=== PATIENT | female | born 1990 | race Caucasian/White ===

== ENCOUNTER 2018-04-13 04:34 | Inpatient (IN) | payer OTHER ==
--- OUTSIDE RECORDS SUMMARY | 2018-04-13 04:36 | XMS REPORT ---
:1990 Author Organization eClinicalWorks Care Team Providers Name Role Phone All Mayer Provider Role Unavailable Allergies No Known Allergies Problems Problem Type Condition Code Onset Dates Condition Status Problem Scoliosis (and kyphoscoliosis), M41.20 Active idiopathic Problem Cluster headache G44.009 Active Problem ADHD (attention deficit F90.2 Active hyperactivity disorder), combined type Assessment care, subsequent Z34.82 Active in second trimester Problem care, subsequent Z34.82 Active in second trimester Problem Medication exposure during first O09.891 Active trimester of Problem Nausea/vomiting in O21.9 Active Problem Asthma J45.909 Active Problem Allergic rhinitis, seasonal J30.2 Active Problem Atopic dermatitis L20.9 Active Problem Pap smear abnormality of R87.89 Active cervix/human papillomavirus (HPV) positive Medications Medication Code System Code Instructions Start End Date Status Dosage Date Vyvanse [facility] 31941132255 40 MG Orally Active 1 capsule Once a day in the morning Reglan ND 51191233123 10 MG Orally September 10, Active 1 every 8 hours or 2018 as needed Diclegis ND 71383544998 10 mg by mouth September 10, Active 2 every 6 hours 2018 Results No Known Results Summary Purpose eClinicalWorks Submission
--- OUTSIDE RECORDS SUMMARY | 2018-04-13 04:36 | XMS REPORT ---
:1990 Author Organization eClinicalWorks Care Team Providers Name Role Phone All Mayer Provider Role Unavailable Allergies No Known Allergies Problems Problem Type Condition Code Onset Dates Condition Status Problem Allergic rhinitis, seasonal J30.2 Active Problem Atopic dermatitis L20.9 Active Problem Asthma J45.909 Active Problem Oligohydramnios, antepartum, O41.00X0 Active single or unspecified fetus Problem Uterine size-date discrepancy in O26.843 Active third trimester Problem Poor growth affecting O36.5930 Active management of mother in third trimester, single or unspecified fetus Problem care, subsequent Z34.82 Active in second trimester Problem Medication exposure during first O09.891 Active trimester of Problem Encounter for supervision of other Z34.83 Active normal in third trimester Problem Nausea/vomiting in O21.9 Active Assessment Poor growth affecting O36.5930 Active management of mother in third trimester, single or unspecified fetus Assessment Uterine size-date discrepancy in O26.843 Active third trimester Assessment Oligohydramnios, antepartum, O41.00X0 Active single or unspecified fetus Problem Pap smear abnormality of R87.89 Active cervix/human papillomavirus (HPV) positive Problem Scoliosis (and kyphoscoliosis), M41.20 Active idiopathic Assessment Encounter for supervision of other Z34.83 Active normal in third trimester Problem ADHD (attention deficit F90.2 Active hyperactivity disorder), combined type Problem Cluster headache G44.009 Active Medications Medication Code System Code Instructions Start End Date Status Dosage Date Diclegis [facility] 12866476338 10 mg by mouth September 10, Active 2 every [address] [facility] 68570220230 40 MG Orally Active 1 capsule Once a day in the morning Reglan [facility] 22372352852 10 MG Orally September 10, Active 1 every 8 hours or 2018 as needed Results No Known Results Immunizations Vaccine Administration Date TDAP > 7 Years-Adacel Mar 25, 2018 Summary Purpose eClinicalWorks Submission
--- OUTSIDE RECORDS SUMMARY | 2018-04-13 04:36 | XMS REPORT ---
:1990 Author Organization eClinicalWorks Care Team Providers Name Role Phone Afia Narayan Provider Role Unavailable Allergies No Known Allergies Problems Problem Type Condition Code Onset Dates Condition Status Assessment care, subsequent Z34.81 Active in first trimester Problem Medication exposure during first O09.891 Active trimester of Assessment Medication exposure during first O09.891 Active trimester of Medications Medication Code System Code Instructions Start End Date Status Dosage Date Reglan [facility] 14217108808 10 MG Orally September 10, Active 1 every 8 hours or 2018 as needed Diclegis ND 88938002650 10 mg by mouth September 10, Active 2 every 6 hours 2018 Vyvanse [facility] 62147891616 40 MG Orally Active 1 capsule Once a day in the morning Results No Known Results Summary Purpose eClinicalWorks Submission
--- OUTSIDE RECORDS SUMMARY | 2018-04-13 04:36 | XMS REPORT ---
[...] Start End Date Status Dosage Date Reglan [facility] 46101394275 10 MG Orally September 10, Active 1 every 8 hours or 2018 as needed Diclegis ND 19753843822 10 mg by mouth September 10, Active 2 every 6 hours 2017 Vyvanse [facility] 29675930343 40 MG Orally Active 1 capsule Once a day in the morning Results No Known Results Summary Purpose eClinicalWorks Submission
--- OUTSIDE RECORDS SUMMARY | 2018-04-13 04:36 | XMS REPORT ---
:1990 Author Organization eClinicalWorks Care Team Providers Name Role Phone Afia Narayan Provider Role Unavailable Allergies No Known Allergies Problems Problem Type Condition Code Onset Dates Condition Status Problem Scoliosis (and kyphoscoliosis), M41.20 Active idiopathic Problem Cluster headache G44.009 Active Problem ADHD (attention deficit F90.2 Active hyperactivity disorder), combined type Assessment Nausea/vomiting in O21.9 Active Assessment care, subsequent Z34.82 Active in second [...] Start End Date Status Dosage Date Vyvanse [facility] 35579375820 40 MG Orally Active 1 capsule Once a day in the morning Merry [facility] 56382648940 10 mg by mouth September 10, Active 2 every 6 hours 2018 Reglan ND 48639376187 10 MG Orally September 10, Active 1 every 8 hours or 2018 as needed Results No Known Results Summary Purpose eClinicalWorks Submission
--- OUTSIDE RECORDS SUMMARY | 2018-04-13 04:37 | XMS REPORT ---
[...] Start End Date Status Dosage Date Reglan [facility] 59859904855 10 MG Orally September 10, Active 1 every 8 hours or 2018 as needed Vyvanse [facility] 71127836348 40 MG Orally Active 1 capsule Once a day in the morning Diclegis [facility] 60470631608 10 mg by mouth September 10, Active 2 every 6 hours 2018 Results No Known Results Summary Purpose eClinicalWorks Submission
--- OUTSIDE RECORDS SUMMARY | 2018-04-13 04:37 | XMS REPORT ---
:1990 Author Organization eClinicalWorks Care Team Providers Name Role Phone All Mayer Provider Role Unavailable Allergies No Known Allergies Problems Problem Type Condition Code Onset Dates Condition Status Problem Allergic rhinitis, seasonal J30.2 Active Problem Atopic dermatitis L20.9 Active Problem Asthma J45.909 Active Problem Pap smear abnormality of R87.89 Active cervix/human papillomavirus (HPV) positive Problem Scoliosis (and kyphoscoliosis), M41.20 Active idiopathic Problem ADHD (attention deficit F90.2 Active hyperactivity disorder), combined type Problem Cluster headache G44.009 Active Problem Oligohydramnios, antepartum, O41.00X0 Active single [...] third trimester Problem Nausea/vomiting in O21.9 Active Medications No Known Medications Results No Known Results Summary Purpose eClinicalWorks Submission
[2018-04-13] MEDS ORDERED: METHYLERGONOVINE 0.2MG/ML AMP IM PRN (05:03)
[2018-04-13] MEDS ORDERED: Ringers Lactate 1,000 ML IV PRN (05:03)
[2018-04-13] MEDS ORDERED: BUTORPHANOL 1 MG/ML INJ IV PRN (05:03)
[2018-04-13] MEDS ORDERED: PROMETHAZINE 25 MG/ML VIAL IM PRN (05:03)
[2018-04-13] MEDS ORDERED: CARBOPROST TROME 250 MCG/ML IM PRN (05:03)
[2018-04-13] MEDS ORDERED: FENTANYL CITR 100 MCG/2 ML IV ONE (05:05)
[2018-04-13] MEDS ORDERED: ROPIVACAINE HCL 100 ML IV PRN (05:05)
[2018-04-13] MEDS ORDERED: ROPIVACAINE HCL 0.2% 20ML AMP IV ONE (05:06)
[2018-04-13] MEDS ORDERED: MEPERIDINE HCL 25 MG/0.5 ML IV ONE (05:34)
[2018-04-13 05:40] LABS: RPR Titer ND
[2018-04-13] MEDS ORDERED: LIDOCAINE 1% MPF 30 ML VIAL ONE (05:43)
[2018-04-13] MEDS ORDERED: Ringers Lactate 1,000 ML IV SCH (06:00)
[2018-04-13] MEDS ORDERED: OXYTOCIN/LR 20 UNIT/1,000 ML BAG IV SCH (06:00)
[2018-04-13 06:04] LABS: Absolute Lymphocytes (CBC) 1.7 K/uL (0.7-4.9); Absolute Monocytes 0.8 K/uL (0.1-1.3); Absolute Neutrophil 16.7 K/uL (1.8-8.0); Basophils % 0.2 % (0-1.3); Eosinophils % 0.3 % (0-4.4); Hematocrit 38.6 % (36.0-45.0); MPV 8.2 fL (7.6-11.3); Monocytes % 3.9 % (3.3-12.3); RBC Red Blood Cell Count 4.48 M/uL (3.86-4.86)
[2018-04-13 06:38] LABS: Blood Morphology Comment NOT SEEN (NOT SEEN); Platelet Estimate ADEQ; Urine White Blood Cell Casts OK
[2018-04-13 07:20] VITALS: BMI 33.2
[2018-04-13] MEDS ORDERED: DOCUSATE NA/SENNA CONC 1 TAB PO PRN (08:15)
[2018-04-13] MEDS ORDERED: METHYLERGONOVINE 0.2 MG TAB PO PRN (08:15)
[2018-04-13] MEDS ORDERED: ONDANSETRON 4 MG (ODT) TAB PO PRN (08:15)
[2018-04-13] MEDS ORDERED: ACETAMINOPHEN 500 MG TAB PO PRN (08:15)
[2018-04-13] MEDS ORDERED: BISACODYL 10 MG RECTAL SUPP RECT PRN (08:15)
[2018-04-13] MEDS ORDERED: IBUPROFEN 200 MG TAB PO PRN (08:15)
--- NOTE | 2018-04-13 16:35 | P.OBGYNHP ---
Certification for Inpatient Patient admitted to: Inpatient With expected LOS: <2 Midnights Patient will require the following post-hospital care: None Practitioner: I am a practitioner with admitting privileges, knowledge of patient current condition, hospital course, and medical plan of care. Services: Services provided to patient in accordance with Admission requirements found in Title 42 Section 412.3 of the Code of Federal Regulations Patient History Date of Service: 04/13/18 Reason for admission: LABOR History of Present Illness: Patient is a 27-year-old 2 para 1011 who presented to Labor and delivery at the weeks and 5 days gestation in active labor with spontaneous rupture of membranes. Patient states she started having contractions early this morning. She went her track to come to the hospital and her water broke while she was in the car. Upon at arrival to Labor and delivery by nurse's exam she was noted to be 7 cm dilated. The patient desires epidural therefore she was admitted and anesthesia was contacted for epidural placement. She has obtained care with mo beginning at 8 weeks gestation she has been compliant with all visits. She has been having repeat ultrasounds performed due to uterus measuring smaller than dates. Her last ultrasound was performed on March 25, 2018 at which time the fetus was noted to be measuring 6 lb 9 oz. was in cephalic presentation with an MARELY of 11.5. She has not had any other complications throughout the care her last hemoglobin hematocrit was on March 25 was noted to be 12.6 and 37.5. She received her Tdap vaccine on March 25. She had noninvasive testing done and was found to have a low risk female infant. She has a history of 1 prior vaginal delivery. See record for further details. Allergies No Known Allergies Allergy (Unverified 04/13/18 05:41) Home Medications: Pnv95/Ferrous Fumarate/FA [ Tablet] 1 each PO DAILY 03/01/13 - Past Medical/Surgical History Diabetic: No -: Asthma -: ADHD -: Allergic rhinitis -: Cluster headaches -: Tonsilectomy -: Beacon Teeth - Family History Family History: Reviewed- Non-Contributory - Social History Smoking Status: Never smoker Alcohol use: No CD- Drugs: No Caffeine use: Yes Place of Residence: Home Review of Systems 10-point ROS is otherwise unremarkable Physical Examination - Vital Signs Temperature: 98.3 F Blood Pressure: 131/65 Pulse: 121 Respirations: 22 - General General: Alert, Oriented x3, Moderate distress HEENT: Atraumatic Neck: Supple Respiratory: Normal air movement Cardiovascular: No edema, Normal pulses Breasts: Normal configuration Gastrointestinal: Other (Gravid abdomen) Musculoskeletal: No clubbing, No swelling Neurological: Normal gait, Normal speech - Female Pelvic External genitalia: Normal, No lesions, No masses Vagina: [place], Moist, Smooth Cervix: Dilation (7-8 cm), Effacement (90%), station (-2) Uterus: Gravid - Obstetrics heart rate tracing: Category 2 Amniotic membrane: SROM Laboratory Data (last 24 hrs) 04/13/18 05:13: WBC 19.3 H, Hgb 12.7, Hct 38.6, Plt Count 294 Assessment and Plan - Plan Heather is a 27-year-old 2 para 1001 who presents at 38 weeks and 6 days gestation in active labor. Epidural placement is being performed. Pitocin will be started for labor augmentation. Routine pain management is being administered. Continuous maternal monitoring be performed. We anticipate vaginal . Discharge Plan: Home Plan to discharge in: 48 Hours - Advance Directives Does patient have a Living Will: No Does patient have a Durable POA for Healthcare: No
--- NOTE | 2018-04-13 17:06 | P.OP ---
Date of Service: 04/13/18 Findings and Operative Technique The patient delivered a viable female infant in cephalic presentation on April 13, 2018 at 07:23. was delivered over a midline episiotomy via vacuum assisted vaginal delivery due to bradycardia. Once the infant was delivered nuchal cord was noted x1 and was manually reduced. The was delivered nose and mouth were suctioned with a suction bulb. Cord was clamped and cut. Terminal meconium was noted. Infant was handed to nursery nurse for assessment. Attention was then turned to the placenta. Cord blood was obtained was delivered with gentle traction. Placenta was examined and noted to be intact. Episiotomy was repaired with a 2 0 Vicryl in the usual fashion. EBL was 200 cc. Fundus was palpated and found to be firm. Patient and baby are both doing well. 1st stage of labor was 3 hours and 25 minutes. 2nd stage of labor was 8 minutes. Apgars were 7 and 9. Weight was found to be 7 lb 1 ounce. The baby are doing well. Routine orders will be placed. Plan for discharge home tomorrow.
[2018-04-13 20:53] LABS: RPR (Rapid Plasma Reagin) NON-REACT (NON-REACT)
[2018-04-14] MEDS: Oxycodone HCl/Acetaminophen 1 TAB TAB PO PRN ×2 (02:46→08:35)
[2018-04-14 04:50] LABS: Absolute Lymphocytes (CBC) 2.1 K/uL (0.7-4.9); Absolute Monocytes 0.8 K/uL (0.1-1.3); Absolute Neutrophil 12.9 K/uL (1.8-8.0); Basophils % 0.3 % (0-1.3); Eosinophils % 0.5 % (0-4.4); Hematocrit 33.7 % (36.0-45.0); Lymphocytes % 13.1 % (15.3-44.8); MPV 8.2 fL (7.6-11.3); Monocytes % 5.1 % (3.3-12.3); RBC Red Blood Cell Count 3.89 M/uL (3.86-4.86)
[2018-04-14 08:01] VITALS: BP 112/68; TEMP 97.7
--- NOTE | 2018-04-14 11:48 | P.DS ---
Admission Date: 04/13/18 Discharge Date: 04/14/18 Disposition: ROUTINE DISCHARGE Discharge Condition: GOOD Reason for Admission: LABOR Brief History of Present Illness: Patient is a 27-year-old 2 para 1011 who presented to Labor and delivery at the weeks and 5 days gestation in active labor with spontaneous rupture of membranes. Patient states she started having contractions early this morning. She went her track to come to the hospital and her water broke while she was in the car. Upon at arrival to Labor and delivery by nurse's exam she was noted to be 7 cm dilated. The patient desires epidural therefore she was admitted and anesthesia was contacted for epidural placement. She has obtained care with tx beginning at 8 weeks gestation she has been compliant with all visits. She has been having repeat ultrasounds performed due to uterus measuring smaller than dates. Her last ultrasound was performed on March 25, 2018 at which time the fetus was noted to be measuring 6 lb 9 oz. Infant was in cephalic presentation with an MARELY of 11.5. She has not had any other complications throughout the care her last hemoglobin hematocrit was on March 25 was noted to be 12.6 and 37.5. She received her Tdap vaccine on March 25. She had noninvasive testing done and was found to have a low risk female . She has a history of 1 prior vaginal delivery. See record for further details. Hospital Course: Patient did well following delivery of the baby. She is bonding well with the baby. She is breast-feeding. She has no complaints. She is voiding without issues. She is tolerating a regular diet. She is just having some pelvic pain after delivery. Pain is being treated with ibuprofen. Recommended that she take that at home as well. Patient states her bleeding is mild. Denies any fevers no chills. Vital Signs/Physical Exam: Temp Pulse Resp BP Pulse Ox 97.7 F 73 18 112/68 04/14/18 08:00 04/14/18 08:00 04/14/18 04:25 04/14/18 08:00 General: Alert, In no apparent distress HEENT: Atraumatic, Normocephalic Neck: Supple Respiratory: Normal air movement Cardiovascular: No edema, Normal pulses Capillary refill: <2 Seconds Gastrointestinal: Soft and benign (Fundus firm palpable beneath umbilicus) Musculoskeletal: No clubbing, No swelling Integumentary: No rashes, No breakdown Laboratory Data at Discharge: WBC 15.9 K/uL (4.3-10.9) H D 04/14/18 04:08 Hgb 11.2 g/dL (12.0-15.0) L 04/14/18 04:08 Hct 33.7 % (36.0-45.0) L 04/14/18 04:08 Plt Count 248 K/uL (152-406) 04/14/18 04:08 Home Medications: Pnv95/Ferrous Fumarate/FA [ Tablet] 1 each PO DAILY 03/01/13 Diet: Regular Activity: No lifting more than 10 lbs
[2018-04-15 04:28] LABS: HBsAG Nonreactive (Nonreactive)
== END 2018-04-14 10:40 | disposition home or self-care (01) | DRG 807 ==
LOC: 2ND-WC 04:34
PROVIDERS: ADMIT Student in an Organized Health Care Education/Training Program; ATTEND Student in an Organized Health Care Education/Training Program
PROC: 10D07Z6 Extraction of Products of Conception, Vacuum, Via Natural or Artificial Opening (ICD-10-PCS; principal; 2018-04-13)
PROC: 0W8NXZZ Division of Female Perineum, External Approach (ICD-10-PCS; 2018-04-13)
DX: O76 Abnormality in fetal heart rate and rhythm complicating labor and delivery (principal); Z37.0 Single live birth; O69.81X0 Labor and delivery complicated by cord around neck, without compression, not applicable or unspecified; Z3A.38 38 weeks gestation of pregnancy
CPT/HCPCS: 36415; 85025; 86592; 86901; 87340; J0595; J2175; J2210; J2550; J2590; J2795; J3010